=== PATIENT | male | born 1990 | race Caucasian/White ===

== ENCOUNTER 2016-05-22 08:35 | Emergency (ER) | payer OTHER ==
[2016-05-22] MEDS ORDERED: ACETAMINOPHEN 325 MG TABLET PO STA (09:03)
[2016-05-22] MEDS ORDERED: IBUPROFEN 600 MG TABLET PO STA (09:03)
[2016-05-22] MEDS ORDERED: ACETAMINOPHEN 325 MG TABLET PO ONE (09:05)
[2016-05-22] MEDS ORDERED: IBUPROFEN 600 MG TABLET PO ONE (09:05)
== END 2016-05-22 09:44 | disposition home or self-care (01) ==
DX: R05 Cough (principal); R07.1 Chest pain on breathing
CPT/HCPCS: 71020; 93005; 93010; 99283; 99284; A9270